=== PATIENT | female | born 2005 | race Caucasian/White ===

== ENCOUNTER 2025-02-06 08:42 | Day surgery (SDC) | payer MEDICAID ==
[~2025-02-06] VITALS: Ht 170.2 cm; Wt 79.5 kg
[~2025-02-06 08:42] MED LIST: SODIUM CHLORIDE 0.9% 1,000 ML ONE
[2025-02-06] MEDS: SODIUM CHLORIDE 0.9% 1,000 ML IV ONE (09:20)
[2025-02-06] MEDS ORDERED: PROPOFOL 1% 20 ML VIAL IVP ONE (12:00)
[2025-02-06] MEDS ORDERED: LIDOCAINE/PF 2% 5 ML VIAL ONE (12:00)
[2025-02-06] MEDS ORDERED: OXYGEN THERAPY IH SCH (20:00)
== END 2025-02-06 12:25 | disposition home or self-care (01) ==
LOC: SURGERY 08:42
PROVIDERS: ATTEND Specialist
DX: R19.4 Change in bowel habit (principal); R10.13 Epigastric pain; Z79.899 Other long term (current) drug therapy
CPT/HCPCS: 45380; 43239; 84703; 88305; J2704; J3490; J7030